=== PATIENT | female | born 2000 | race African-American/Black ===

== ENCOUNTER 2024-03-03 13:49 | Emergency (ER) | payer MEDICAID ==
[~2024-03-03] VITALS: Ht 157.5 cm; Wt 55.0 kg
[2024-03-03 14:01] VITALS: O2SAT 100
[2024-03-03 14:24] LABS: HEMATOCRIT. 40.1 % (36.0-48.0); HEMOGLOBIN. 13.5 g/dL (12.0-16.0); MEAN CORPUSCULAR HEMOGLOBIN 32.3 pg (28.0-32.0); MEAN CORPUSCULAR HGB CONC 33.7 g/dL (31.0-37.0); MEAN CORPUSCULAR VOLUME 95.9 fL (81.0-99.0); MEAN PLATELET VOLUME 7.6 fl (7.4-10.4); PLATELET 255 x1000/uL (130-400); RED BLOOD CELL COUNT 4.18 mill/uL (4.2-5.4); RED CELL DISTRIBUTION WIDTH 12.6 % (11.6-14.6); WHITE BLOOD COUNT 10.2 x1000/uL (4.5-11.0)
[2024-03-03 14:28] LABS: CHLORIDE 108 mEq/L (98-107); POTASSIUM 3.6 mEq/L (3.5-5.1); SODIUM 139 mEq/L (136-145)
[2024-03-03 14:29] LABS: CARBON DIOXIDE 24 mEq/L (21-32)
[2024-03-03 14:30] LABS: CALCIUM 9.2 mg/dL (8.7-10.4)
[2024-03-03 14:32] LABS: DIFFERENTIAL COMMENT 1
[2024-03-03 14:34] LABS: CREATININE 0.8 mg/dL (0.6-1.0); GLUCOSE 108 mg/dL (70-105)
[2024-03-03 14:35] LABS: UREA NITROGEN BLOOD 6 mg/dL (9-23)
[2024-03-03] MEDS: ACETAMINOPHEN 325MG TABLET PO ONE (15:23)
[2024-03-03] MEDS: ONDANSETRON 4MG ODT PO ONE (15:24)
[2024-03-03 15:44] LABS: ALANINE AMINOTRANSFERASE 12 IU/L (10-49); ALBUMIN 4.4 g/dL (3.2-4.8); ASPARTATE AMINOTRANSFERASE 19 IU/L (<34); BILIRUBIN DIRECT 0.3 mg/dL (<=3.0); BILIRUBIN TOTAL 0.8 mg/dL (0.1-1.0)
[2024-03-03 15:55] LABS: HCG SCREEN NEGATIVE
[2024-03-03 16:00] LABS: PLATELET ESTIMATE NORMAL
[2024-03-03 16:04] LABS: CLARITY URINE CLEAR (CLEAR); COLOR URINE YELLOW (YELLOW); GLUCOSE URINE NEGATIVE (NEGATIVE); KETONES URINE 3+ (NEGATIVE); LEUKOCYTE ESTERASE URINE TRACE (NEGATIVE); NITRITE URINE NEGATIVE (NEGATIVE); OCCULT BLOOD URINE 3+ (NEGATIVE); PROTEIN URINE NEGATIVE (NEGATIVE); SPECIFIC GRAVITY URINE 1.027 (1.005-1.030)
[2024-03-03 16:21] LABS: BACTERIA URINE 1+; RBC URINE 50-100 /hpf (0-2); SQUAMOUS EPITHELIAL CELL URINE FEW /lpf (RARE/1+)
[2024-03-03 16:22] LABS: MUCUS URINE 1+ /lpf (< = 2+); WBC URINE 0-2 /hpf (0-2)
[2024-03-03] MEDS ORDERED: ONDA4TAB11 PO (16:58)
[2024-03-03 17:11] VITALS: BP 125/87; PULSE 66; RESP 15; TEMP 98.4
== END 2024-03-03 17:42 | disposition home or self-care (01) ==
LOC: ER 13:49
DX: R19.7 Diarrhea, unspecified (principal); J45.909 Unspecified asthma, uncomplicated
CPT/HCPCS: 99284; 74176; 80076; 80048; 81003; 81025; 84703; 83690; 85025; 86850; 86900; 86901; 36415; Q0162